=== PATIENT | male | born 1955 | race Caucasian/White ===

== ENCOUNTER 2025-01-17 09:20 | Outpatient (CLI) | payer OTHER | END 2025-01-17 09:21 | disposition home or self-care (01) | LOC: CSHCT 09:20 | PROVIDERS: ATTEND Student in an Organized Health Care Education/Training Program | DX: E11.9 Type 2 diabetes mellitus without complications (principal); R93.1 Abnormal findings on diagnostic imaging of heart and coronary circulation | CPT/HCPCS: 75571 ==